=== PATIENT | female | born 1985 | race Asian ===

== ENCOUNTER 2016-12-26 16:10 | Emergency (ER) | payer OTHER ==
[~2016-12-26] VITALS: Ht 152.4 cm; Wt 47.7 kg
[2016-12-26 16:33] VITALS: BP 139/105; PULSE 93; RESP 18; O2SAT 100
[2016-12-26 17:08] LABS: EOSINOPHILS % (AUTO) 0.7 % (0-5); NEUTROPHILS % (AUTO) 70.5 % (40-74)
[2016-12-26 17:11] LABS: MONOCYTES % (AUTO) 7.4 % (4-12); Mean Corpuscular Hemoglobin 19.8 pg (27.0-35.0); Mean Corpuscular Volume 61.8 fL (81-100); Platelet Count 394 bil/L (150-400)
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
[2016-12-26 20:50] VITALS: PULSE 86; RESP 16
[2016-12-26 21:01] VITALS: BP 131/89; PULSE 110; RESP 21; O2SAT 97
== END 2016-12-26 20:50 | disposition home or self-care (01) ==
LOC: SED 16:10
DX: F43.0 Acute stress reaction (principal); F30.8 Other manic episodes

== ENCOUNTER 2016-12-26 21:32 | Emergency (ER) | payer OTHER ==
[2016-12-26 21:53] VITALS: BP 141/89; PULSE 101; RESP 18; O2SAT 99
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
[2016-12-26 23:42] VITALS: BP 141/89; PULSE 101; RESP 18; O2SAT 99
== END 2016-12-27 00:43 | disposition home or self-care (01) ==
LOC: SED 21:32
DX: F30.9 Manic episode, unspecified (principal)